=== PATIENT | male | born 1995 | race Caucasian/White ===

== ENCOUNTER 2022-08-30 14:31 | Emergency (ER) | payer SELFPAY ==
[2022-08-30 14:35] VITALS: BP 122/75; PULSE 90; RESP 18; TEMP 98.1; BMI 28.5
[2022-08-30] MEDS ORDERED: ALBUTEROL SO4 2.5/IPRATROPIUM 0.5 INH SOL 3 ML VIAL.NEB. NEB ONE ×2 (15:43→15:48)
[2022-08-30] MEDS ORDERED: ALBUTEROL SO4 HFA INHALER IH ONE ×2 (15:43→15:48)
== END 2022-08-30 16:45 | disposition home or self-care (01) ==
LOC: JER 14:31
PROC: 3E0F7GC Introduction of Other Therapeutic Substance into Respiratory Tract, Via Natural or Artificial Opening (ICD-10-PCS; principal; 2022-08-30)
DX: R06.02 Shortness of breath (principal); R07.89 Other chest pain
CPT/HCPCS: 71046-TC-FY; 93005; 93010; 99284-25